=== PATIENT | female | born 1965 | race Caucasian/White ===

== ENCOUNTER 2024-10-02 16:33 | Emergency (ER) | payer MEDICAID, SELFPAY ==
[2024-10-02] VITALS (7 sets, daily range): BP systolic 155–218; BP diastolic 81–133; PULSE 53–70; RESP 15–20; TEMP 36.6–36.9; O2SAT 97–99; BMI 22.8
--- NOTE | 2024-10-02 17:08 | XR_ITS ---
Examination: AP chest single view Technique one AP portable semiupright chest single view Exam date and time: October 02, 2024 1739 hrs. Comparison January 25, 2015 Indications: High blood pressure today. Findings: Moderate enlargement left ventricle Mild vascular congestion Suspicious for septal edema at the lung bases Prominent osteopenia Impression: Mild heart failure
--- NOTE | 2024-10-02 17:08 | XR_ITS ---
Examination: CT brain head without contrast. 2-D sagittal coronal reconstructions Date and time of exam:October 02, 2024 1802 hrs. Indications: Onset headaches today CTDI: vol (mGy):46.4 DLP: (mGycm):953 Technique: Multiple CT axial sections of the brain have been obtained, 5 mm slice thickness. Contrast has not been administered. 2-D sagittal, coronal reconstructions have been obtained Low dose protocols were performed. One or more of the following dose reduction techniques were used; automated exposure control, adjustment of the mA and/or KV according to patient size, use of iterative reconstruction technique. Findings: No significant ventricular enlargement. Multiple bilateral basal ganglia infarcts Intra-axial or extra-axial hemorrhage density is not seen. No mass effect or midline shift Basal cisterns are not remarkable. Fourth ventricle is midline. Cranial vault intact. Impression: Negative for acute hemorrhage, mass effect or midline shift Bilateral old appearing basal ganglia infarcts, clinical correlation advised Brain MRI follow-up would best assess for acute infarcts
--- NOTE | 2024-10-02 17:12 | PD.EDHA ---
ED Headache RME/HPI General Chief Complaint: Headache Stated Complaint: HEADACHE Time Seen by Provider: 10/02/24 16:36 Arrival date/time: 10/02/24 16:33 RME / HPI RME / HPI Narrative: 59-year-old female patient with significant history of hypertension however not taking any medication due to homelessness, no resources, came in for evaluation regarding headache. According to the patient has been having headaches since yesterday morning, associated with heaviness on both side of the body. Patient told me that he had difficulty ambulating due to heaviness. Patient denies any blurry vision. Denies any fever denies any chest pain denies any other complaints. Patient is not taking her losartan due to being homeless. Was brought in by EMS. Related Data Previous Rx's ?Medication ?Instructions ?Recorded Sulfamethoxazole/Trimethoprim DS * 1 tab PO BID #20 tabs 09/30/16 (BACTRIM DS *) ibuprofen 600 mg tablet 600 mg PO Q6HR PRN PAIN #40 tabs 09/30/16 losartan 25 mg tablet 25 mg PO QDAY #30 tabs 04/11/21 losartan 25 mg tablet 25 mg PO QDAY #30 tabs 02/07/24 ibuprofen 800 mg tablet 800 mg PO Q8H PRN pain #30 tabs 10/02/24 losartan 25 mg tablet 25 mg PO BID #60 tabs 10/02/24 Allergies Allergy/AdvReac Type Severity Reaction Status Date / Time NKA* Allergy Uncoded 04/11/21 10:16 Review of Systems Review of Systems Narrative Review of Systems: Review of system reviewed and within normal limits except mentioned in HPI ED Exam Narrative Physical exam: VITAL SIGNS: Reviewed. GENERAL APPEARANCE: Alert and interactive, follows commands, no acute distress, GCS of 15 HEAD AND FACE: Non-traumatic. ENT: PERRL, pink conjunctivitis, eyelid no trauma, Mucous membrane moist. NECK: Supple, nontender, no nuchal rigidity. CHEST: No tenderness, no crepitus, no paradoxical movement, no retractions. LUNGS: Clear, well ventilated, symmetric, no rales, no wheezing, no ronchi, no stridor, good breath sounds bilaterally. HEART: Regular rate, regular rhythm, no murmur, no gallops. ABDOMEN: Soft, positive bowel sounds, nondistended, no guarding, nontender, no rebound, no masses, RECTAL: Deferred. GENITAL: Deferred. NEUROLOGICAL: Gross motor function intact sensory function intact, Appropriate for age. MUSCULOSKELETAL: low back nontender, full range of motion. EXTREMITIES: Nontender, full range of motion. SKIN: Color pink, dry, no rash, no lacerations, no abrasions, no contusions. LYMPHATICS: Deferred. Course Quality Measures none Orders Category Date Time Status Bedside COVID-19 Antigen Test NOW Care 10/02/24 17:10 Active Bedside Influenza A&B Antigen Test NOW Care 10/02/24 17:[address] head/brain wo con Stat Exams 10/02/24 17:08 Completed XR chest 1V Stat Exams 10/02/24 17:08 Taken B-Type Natriuretic Peptide Stat Lab 10/02/24 18:25 Completed CBC Stat Lab 10/02/24 18:25 Completed Comprehensive Metabolic Panel Stat Lab 10/02/24 18:25 Completed Drug Screen,Urine Stat Lab 10/02/24 17:08 Ordered Partial Thromboplastin Time Stat Lab 10/02/24 18:25 Completed Prothrombin Time with INR Stat Lab 10/02/24 18:25 Completed Troponin I Stat Lab 10/02/24 18:25 Completed Urinalysis, C/S if Indicated Stat Lab 10/02/24 17:08 Ordered Acetaminophen Tab [Tylenol ES Tab] Med 10/02/24 17:10 Discontinued 1,000 mg PO X1 ONE Labetalol IV [Trandate IV] Med 10/02/24 17:10 Discontinued 20 mg IVP X1 ONE Oseltamivir [Tamiflu] Med 10/02/24 19:14 Discontinued 75 mg PO X1 ONE cloNIDine HCL [Catapres] Med 10/02/24 19:15 Discontinued 0.2 mg PO X1 ONE Vital Signs Vital signs: Vital Signs Temperature 97.8 F 10/02/24 17:04 Pulse Rate 70 10/02/24 17:04 Respiratory Rate 20 10/02/24 17:04 Blood Pressure 201/120 H 10/02/24 17:04 Pulse Oximetry (%) 98 10/02/24 17:04 Oxygen Delivery Method Room Air 10/02/24 17:04 Headache MDM Narrative MDM Narrative:: 59-year-old female patient with significant history of hypertension however not taking any medication due to homelessness, no resources, came in for evaluation regarding headache. According to the patient has been having headaches since yesterday morning, associated with heaviness on both side of the body. Patient told me that he had difficulty ambulating due to heaviness. Patient denies any blurry vision. Denies any fever denies any chest pain denies any other complaints. Patient is not taking her losartan due to being homeless. Was brought in by EMS. CT scan of the head came back with Negative for acute hemorrhage, mass effect or midline shift Bilateral old appearing basal ganglia infarcts, clinical correlation advised Brain MRI follow-up would best assess for acute infarcts Patient tested positive for influenza A influenza B. The rest of the labs unremarkable. Patient was given Tylenol, clonidine, labetalol, and Tamiflu. Latest blood pressure was noted to be 155/81, Patient appears nontoxic and hemodynamically stable. Patient discharged home and instructed to follow-up with primary care provider in 24 to 48 hours. Instructed to return to the emergency department immediately if worsening of symptoms Patient data External records reviewed:: None Clinical information provided by:: patient Social determinants that could affect healthcare access:: none Patient has the following chronic illnesses:: Hypertension How is presenting disease/condition affected by chronic disease/condition?: exacerbated by Evaluation data The following diagnostics were reviewed and interpreted by me:: lab results and radiology exam(s) Lab and/or radiology exams considered but not ordered:: None Interpretation Summary: See results in MDM. Medications / Prescriptions Medications or Prescriptions considered but not ordered:: None Medication administrations:: Medication Administration History Discontinued Medications Acetaminophen (Acetaminophen 500 Mg Tablet) 1,000 mg PO X1 ONE Stop: 10/02/24 17:11 Last Admin: 10/02/24 17:57 Dose: 1,000 mg Documented By: SEEMA Clonidine (Clonidine Hcl 0.1 Mg Tablet) 0.2 mg PO X1 ONE Stop: 10/02/24 19:16 Last Admin: 10/02/24 19:27 Dose: 0.2 mg Documented By: SHORTY Labetalol HCl (Labetalol Inj 5 Mg/Ml Vial 20 Ml) 20 mg IVP X1 ONE Stop: 10/02/24 17:11 Last Admin: 10/02/24 18:26 Dose: 20 mg Documented By: SEEMA Oseltamivir Phosphate (Oseltamivir 75 Mg Capsule) 75 mg PO X1 ONE Stop: 10/02/24 19:15 Last Admin: 10/02/24 19:27 Dose: 75 mg Documented By: CB Tamiflu, labetalol clonidine and Tylenol Consultations Consultation(s) initiated? (list below): No Diagnosis Differential diagnosis headache: migraine, headache and other (Hypertension, influenza) Most likely diagnosis given after review of the tests above:: Hypertension, influenza, headache Admission Indicated Admission indicated?: not indicated Explain why admission is indicated or not indicated:: Stable Admission Request Was there a request for admission?: No Disposition Plan Disposition Plan: Discharge Discharge Attestation Discharge Attestation: The patient was given an opportunity to ask questions and understood the discharge instructions. Discharge instructions specifically effects, indications for sooner follow up or return to the emergency department, and the expected course of current diagnosis. Patient condition: Stable Discharge Plan Plan Patient Disposition: HOME (Self Care) Disposition Comment: Stable Prescriptions/Referrals Prescriptions/Med Rec: New losartan 25 mg tablet 25 mg PO BID Qty: 60 0RF ibuprofen 800 mg tablet 800 mg PO Q8H PRN (Reason: pain) Qty: 30 0RF No Action ibuprofen 600 MG tablet 600 mg PO Q6HR PRN (Reason: PAIN) Qty: 40 0RF Sulfamethoxazole/Trimethoprim DS * (BACTRIM DS *) 1 TAB tablet 1 tab PO BID Qty: 20 0RF losartan 25 mg tablet 25 mg PO QDAY Qty: 30 0RF losartan 25 mg tablet 25 mg PO QDAY Qty: 30 0RF Referrals: No Primary/Family,Physician [Primary Care Provider] - In 1 week Problem List Clinical Impression: Headache, Influenza, Hypertension Patient/Caregiver Discharge Instructions Discharge Activity: activity as tolerated Education Materials: ED Influenza (Adult) Additional Instructions: Thank you for the opportunity for serving you today. You are stable for discharged . You are advised to: Follow-up with your PCP in 1 to 2 days Return to ED for worsening of symptoms Increase oral fluids Take medication as prescribed Print Language: Albanian Stand Alone Forms: [place] Award Info., Patient Portal Info Letter TAE/KRYSTA Supervising Physician TAE/KRYSTA Supervising Physician: MD Bebe
[2024-10-02] MEDS: ACETAMINOPHEN 500 MG TABLET 1000 MG PO (17:57)
[2024-10-02] MEDS: LABETALOL INJ 5 MG/ML VIAL 20 ML 20 MG IVP (18:26)
[2024-10-02 18:44] LABS: Basophils # (Auto) 0.1 Thou/mm3 (0.0-0.2); Basophils % (Auto) 1 % (0-2.5); Eosinophils # (Auto) 0.2 Thou/mm3 (0.0-0.5); Eosinophils % (Auto) 2 % (0-10); Hematocrit 43.4 % (36.0-46.0); Hemoglobin 14.8 g/dL (12.0-16.0); Immature Granulocytes % (Auto) 0 % (0-0); Immature Granulocytes Auto 0.03 Thou/mm3 (0.00-0.00); Lymphocytes # (Auto) 2.3 Thou/mm3 (1.0-4.8); Lymphocytes % (Auto) 23 % (10-50); Mean Corpuscular HGB Conc 34.1 g/dl (31.0-37.0); Mean Corpuscular Hemoglobin 29.8 pg (25.0-35.0); Mean Corpuscular Volume 87 fL (80-100); Monocytes # (Auto) 1.2 Thou/mm3 (0.0-0.8); Monocytes % (Auto) 13 % (0-12); Neutrophils % (Auto) 62 % (37-80); Nucleated Red Blood Cell % 0 /100 WBC (0); Platelet Count 328 Thou/mm3 (140-440); RDW Standard Deviation 42.6 fL (36.4-46.3); Red Blood Count 4.97 Miln/mm3 (4.00-5.20); White Blood Count 9.7 Thou/mm3 (3.6-11.0)
[2024-10-02 19:00] LABS: Partial Thromboplastin Time 27.1 Seconds (22.0-36.0); Prothrombin Time 11.2 Seconds (9.0-12.2)
[2024-10-02 19:04] LABS: B-Type Natriuretic Peptide 106 pg/mL (0-100)
[2024-10-02 19:05] LABS: Alanine Aminotransferase 18 U/L (10-49); Albumin, Serum 4.3 gm/dL (3.4-4.8); Albumin/Globulin Ratio 1.4 (1.2-2.2); Alkaline Phosphatase 118 U/L (46-116); Anion Gap 8 (7-16); Aspartate Amino Transferase 21 U/L (0-34); BUN/Creatinine Ratio 17 Ratio (12-20); Bilirubin,Total 0.7 mg/dL (0.3-1.2); Blood Urea Nitrogen 19 mg/dL (9-23); Calcium 10.2 mg/dL (8.3-10.6); Calcium (Corrected) 10.2 mg/dL (8.5-10.1); Carbon Dioxide 31.9 mMol/L (20.0-31.0); Chloride 103 mMol/L (98-107); Creatinine (Component) 1.1 mg/dL (0.6-1.3); Glucose 124 mg/dL (74-106); Osmolality,Calculated 288 (275-295); Sodium 143 mMol/L (136-145); Total Protein 7.3 gm/dL (5.7-8.2); Troponin I < 0.020 ng/mL (0.0-0.045); eGFR 58 See Note
[2024-10-02] MEDS: cloNIDine HCL 0.1 MG TABLET 0.2 MG PO (19:27)
[2024-10-02] MEDS: OSELTAMIVIR 75 MG CAPSULE PO (19:27)
== END 2024-10-02 21:31 | disposition home or self-care (01) ==
PROVIDERS: Nurse Practitioner Family; Emergency Provider Emergency Medicine
DX: I10 Essential (primary) hypertension (principal); J10.1 Influenza due to other identified influenza virus with other respiratory manifestations; T46.5X6A Underdosing of other antihypertensive drugs, initial encounter; Z91.141 Patient's other noncompliance with medication regimen due to financial hardship; Z59.00 Homelessness unspecified; Z79.899 Other long term (current) drug therapy
CPT/HCPCS: 36415; 70450; 71045; 80053; 80307; 81001; 83880; 84484; 85025; 85610; 85730; 87400; 87811; 99284; J3490; A9270; J1920

== ENCOUNTER 2024-11-18 14:17 | Emergency (ER) | payer MEDICAID, SELFPAY ==
[2024-11-18 14:18] VITALS: BMI 24.4
[2024-11-18 14:46] VITALS: BP 194/125; PULSE 87; RESP 18; TEMP 36.6; O2SAT 99
--- NOTE | 2024-11-18 14:52 | XR_ITS ---
Examination: CT abdomen with intravenous contrast CT pelvis with intravenous contrast 2-D coronal reconstructions 2-D sagittal reconstructions Date and time of exam:November 18, 20242021 hrs. Indications: Loss of bowel function today. CTDI: vol (mGy) 6.97 DLP: (mGycm) 299 Technique: Multiple axial sections of the abdomen and pelvis have been obtained. 64 slice high-resolution scanner used. 3 mm axial sections have been obtained, post intravenous injection 60 cc [id number] 2-D sagittal, coronal reconstructions obtained. Low dose protocols were performed. One or more of the following dose reduction techniques were used; automated exposure control, adjustment of the mA and/or KV according to patient size, use of iterative reconstruction technique. Findings: No focal liver or splenic lesions No gallstones No pancreatic or adrenal mass No renal or ureteral calculi, no hydronephrosis No bowel obstruction No pericecal inflammatory change Severe lumbar levoscoliosis Advanced narrowing hip joints Advanced degenerative disc disease L3-L4, L4-L5 Atrophic uterus Diffuse hyperemia involving the colon especially rectosigmoid extending to the rectum Impression: Significant diffuse nonspecific colitis and proctitis pattern Recommend elective colonoscopy follow-up
--- NOTE | 2024-11-18 14:55 | PD.EDRME ---
Rapid Medical Screening Exam [facility] Arrival date/time: 11/18/24 14:17 59-year-old female with a history of hypertension presents to the emergency room with a chief complaint of loss of bowel function. Patient states she recently had a stroke 2 weeks ago that left her slurred speech and bilateral weakness to her lower extremities. Patient states the symptoms are still present but today she began having loss of bowel function I have greeted and performed a focused initial assessment of this patient. A comprehensive ED assessment and evaluation of the patient, analysis of all test results, and completion of the medical decision making process will be conducted by additional ED providers. Chief Complaint: Abdominal Pain Time Seen by Provider: 11/18/24 14:38 Vital signs: Vital Signs Temperature 98 F 11/18/24 14:46 Pulse Rate 87 11/18/24 14:46 Respiratory Rate 18 11/18/24 14:46 Blood Pressure 194/125 H 11/18/24 14:46 Pulse Oximetry (%) 99 11/18/24 14:46 Oxygen Delivery Method Room Air 11/18/24 14:46 Vital signs reviewed by provider: Yes
[2024-11-18 15:37] LABS: Basophils # (Auto) 0.1 Thou/mm3 (0.0-0.2); Basophils % (Auto) 1 % (0-2.5); Eosinophils # (Auto) 0.2 Thou/mm3 (0.0-0.5); Eosinophils % (Auto) 3 % (0-10); Hematocrit 42.6 % (36.0-46.0); Hemoglobin 13.9 g/dL (12.0-16.0); Immature Granulocytes % (Auto) 1 % (0-0); Immature Granulocytes Auto 0.04 Thou/mm3 (0.00-0.00); Lymphocytes # (Auto) 1.8 Thou/mm3 (1.0-4.8); Lymphocytes % (Auto) 24 % (10-50); Mean Corpuscular HGB Conc 32.6 g/dl (31.0-37.0); Mean Corpuscular Hemoglobin 29.8 pg (25.0-35.0); Mean Corpuscular Volume 91 fL (80-100); Monocytes # (Auto) 0.7 Thou/mm3 (0.0-0.8); Monocytes % (Auto) 9 % (0-12); Neutrophils # (Auto) 4.9 Thou/mm3 (1.8-7.7); Neutrophils % (Auto) 64 % (37-80); Nucleated Red Blood Cell % 0 /100 WBC (0); Platelet Count 269 Thou/mm3 (140-440); RDW Standard Deviation 47.5 fL (36.4-46.3); Red Blood Count 4.67 Miln/mm3 (4.00-5.20); White Blood Count 7.7 Thou/mm3 (3.6-11.0)
[2024-11-18 15:56] LABS: Collection Type, Urine Clean Catch
[2024-11-18 16:01] LABS: Alanine Aminotransferase 13 U/L (10-49); Albumin, Serum 4.5 gm/dL (3.4-4.8); Albumin/Globulin Ratio 1.3 (1.2-2.2); Alkaline Phosphatase 111 U/L (46-116); Anion Gap 7 (7-16); Aspartate Amino Transferase 23 U/L (0-34); BUN/Creatinine Ratio 12 Ratio (12-20); Bilirubin,Total 0.8 mg/dL (0.3-1.2); Blood Urea Nitrogen 16 mg/dL (9-23); Calcium 9.9 mg/dL (8.3-10.6); Calcium (Corrected) 9.9 mg/dL (8.5-10.1); Carbon Dioxide 29.6 mMol/L (20.0-31.0); Chloride 105 mMol/L (98-107); Creatinine (Component) 1.3 mg/dL (0.6-1.3); Estimated Creatinine Clearance 36.3 mL/min (>60); Globulin 3.4 gm/dL (2.3-3.5); Glucose 94 mg/dL (74-106); Lipase 26 U/L (12-53); Osmolality,Calculated 284 (275-295); Potassium 4.3 mMol/L (3.4-5.1); Sodium 142 mMol/L (136-145); Total Protein 7.9 gm/dL (5.7-8.2); eGFR 47 See Note
[2024-11-18 16:04] LABS: Bacteria,Urine 2+; Bilirubin,Urine Negative (Negative); Blood,Urine Negative (Negative); Calcium Oxalate Crystals,Urine 2+; Color,Urine Yellow (Lt Yel-Yel); Glucose, Urine Negative (Negative); Hyaline Casts,Urine 1 /hpf (0-1); Ketones,Urine Negative (Negative); Leukocyte Esterase,Urine Positive (Negative); Nitrite,Urine Negative (Negative); PH,Urine 5.5 (5.0-7.0); Protein,Urine 1+ (Neg - Trace); RBC,Urine 35 /hpf (0-3); Specific Gravity,Urine 1.025 (1.001-1.035); Squamous Epithelial Cell,Urine 6 /hpf (0-5); WBC,Urine 108 /hpf (0-5)
[2024-11-18 17:01] LABS: Clarity,Urine Hazy (Clear/Hazy)
[2024-11-18 19:25] VITALS: BP 199/120; PULSE 63; RESP 17; TEMP 36.5; O2SAT 99
--- NOTE | 2024-11-18 22:57 | PD.EDADULT ---
ED General RME/HPI General Chief complaint: Abdominal Pain Stated complaint: UNABLE TO CONTROL BM, BOUTS OF DIARRHEA Time Seen by Provider: 11/18/24 14:38 Arrival date/time: 11/18/24 14:17 RME / HPI RME / HPI narrative: 59-year-old female with a history of hypertension presents to the emergency room with a chief complaint of loss of bowel function. Patient states she recently had a stroke 2 weeks ago that left her slurred speech and bilateral weakness to her lower extremities. Patient states the symptoms are still present but today she began having loss of bowel function. She also complained of diarrhea. Patient is ambulatory unaided. She denies any saddle anesthesia. She denies any bladder incontinence. Denies any dysuria. She denies any other complaints. She is homeless Related Data Previous Rx's ?Medication ?Instructions ?Recorded Sulfamethoxazole/Trimethoprim DS * 1 tab PO BID #20 tabs 09/30/16 (BACTRIM DS *) ibuprofen 600 mg tablet 600 mg PO Q6HR PRN PAIN #40 tabs 09/30/16 losartan 25 mg tablet 25 mg PO QDAY #30 tabs 04/11/21 losartan 25 mg tablet 25 mg PO QDAY #30 tabs 02/07/24 ibuprofen 800 mg tablet 800 mg PO Q8H PRN pain #30 tabs 10/02/24 losartan 25 mg tablet 25 mg PO BID #60 tabs 10/02/24 ciprofloxacin HCl 500 mg tablet 500 mg PO BID #14 tabs 11/18/24 (Cipro) ibuprofen 600 mg tablet 600 mg PO TID PRN pain #30 tabs 11/18/24 Allergies Allergy/AdvReac Type Severity Reaction Status Date / Time NKA* Allergy Uncoded 11/18/24 14:19 Review of Systems Review of Systems Narrative Review of Systems: Review of system reviewed and within normal limits except mentioned in HPI ED Exam Narrative Physical exam: VITAL SIGNS: Reviewed. GENERAL APPEARANCE: Alert and interactive, follows commands, no acute distress, HEAD AND FACE: Non-traumatic. ENT: PERRL, pink conjunctivitis, eyelid no trauma, Mucous membrane moist. NECK: Supple, nontender, no nuchal rigidity. CHEST: No tenderness, no crepitus, no paradoxical movement, no retractions. LUNGS: Clear, well ventilated, symmetric, no rales, no wheezing, no ronchi, no stridor, good breath sounds bilaterally. HEART: Regular rate, regular rhythm, no murmur, no gallops. ABDOMEN: Soft, positive bowel sounds, nondistended, no guarding, nontender, no rebound, no masses, RECTAL: Deferred. GENITAL: Deferred. NEUROLOGICAL: Gross motor function intact sensory function intact, Appropriate for age. MUSCULOSKELETAL: low back nontender, full range of motion. EXTREMITIES: Nontender, full range of motion. SKIN: Color pink, dry, no rash, no lacerations, no abrasions, no contusions. LYMPHATICS: Deferred. Course Quality Measures none Orders Category Date Time Status CT Screening NOW Care 11/18/24 14:[address] abdomen pelvis w con Stat Exams 11/18/24 14:52 Completed CBC Stat Lab 11/18/24 15:20 Completed CMP [Comprehensive Metabolic Panel] Stat Lab 11/18/24 15:20 Completed Lipase Stat Lab 11/18/24 15:20 Completed UA [Urinalysis] Stat Lab 11/18/24 15:24 Completed Urine Culture Stat Lab 11/18/24 15:24 Received Acetaminophen Tab [Tylenol ES Tab] Med 11/18/24 22:56 Once 1,000 mg PO X1 ONE Ciprofloxacin HCl [Ciprofloxacin] Med 11/18/24 22:56 Once 500 mg PO X1 ONE Vital Signs Vital signs: Vital Signs Temperature 98 F 11/18/24 14:46 Pulse Rate 87 11/18/24 14:46 Respiratory Rate 18 11/18/24 14:46 Blood Pressure 194/125 H 11/18/24 14:46 Pulse Oximetry (%) 99 11/18/24 14:46 Oxygen Delivery Method Room Air 11/18/24 14:46 Discharge Plan Plan Patient Disposition: HOME (Self Care) Disposition Comment: stable Prescriptions/Referrals Prescriptions/Med Rec: New ciprofloxacin HCl [Cipro] 500 mg tablet 500 mg PO BID Qty: 14 0RF ibuprofen 600 mg tablet 600 mg PO TID PRN (Reason: pain) Qty: 30 0RF No Action ibuprofen 600 MG tablet 600 mg PO Q6HR PRN (Reason: PAIN) Qty: 40 0RF Sulfamethoxazole/Trimethoprim DS * (BACTRIM DS *) 1 TAB tablet 1 tab PO BID Qty: 20 0RF losartan 25 mg tablet 25 mg PO QDAY Qty: 30 0RF losartan 25 mg tablet 25 mg PO BID Qty: 60 0RF ibuprofen 800 mg tablet 800 mg PO Q8H PRN (Reason: pain) Qty: 30 0RF losartan 25 mg tablet 25 mg PO QDAY Qty: 30 0RF Referrals: No Primary/Family,Physician [Primary Care Provider] - In 1 week Problem List Clinical Impression: UTI (urinary tract infection), Diarrhea Patient/Caregiver Discharge Instructions Discharge Activity: activity as tolerated Education Materials: Understanding Urinary Tract ... Additional Instructions: Thank you for the opportunity for serving you today. You are stable for discharged . You are advised to: Follow-up with your PCP in 1 to 2 days Return to ED for worsening of symptoms Increase oral fluids Take medication as prescribed Print Language: Chilean Stand Alone Forms: [place] Award Info., Patient Portal Info Letter TAE/KRYSTA Supervising Physician TAE/KRYSTA Supervising Physician: MD Yasir [facility] Patient Acuity Narrative: 59-year-old female with a history of hypertension presents to the emergency room with a chief complaint of loss of bowel function. Patient states she recently had a stroke 2 weeks ago that left her slurred speech and bilateral weakness to her lower extremities. Patient states the symptoms are still present but today she began having loss of bowel function. She also complained of diarrhea. Patient is ambulatory unaided. She denies any saddle anesthesia. She denies any bladder incontinence. Denies any dysuria. She denies any other complaints. She is homeless Patient's workup is significant for UTI. CT scan of the abdomen pelvis showed Significant diffuse nonspecific colitis and proctitis pattern Recommend elective colonoscopy follow-up. Patient received Cipro in the emergency room. Patient was advised to closely follow-up with PCP in 1 to 2 days. Clinical Information Provided by: none Medication Administration(s) Medication Administration History Discontinued Medications Acetaminophen (Acetaminophen 500 Mg Tablet) 1,000 mg PO X1 ONE Stop: 11/18/24 22:57 Ciprofloxacin (Ciprofloxacin Hcl 250 Mg Tablet) 500 mg PO X1 ONE Stop: 11/18/24 22:57 Diagnosis Differential Diagnosis ED Complaint MDM: UTI, diarrhea, bowel incontinent
[2024-11-18] MEDS: ACETAMINOPHEN 500 MG TABLET 1000 MG PO (23:12)
[2024-11-18] MEDS: CIPROFLOXACIN HCL 250 MG TABLET 500 MG PO (23:12)
[2024-11-18 23:21] VITALS: BP 180/101; PULSE 78; RESP 18; TEMP 36.6; O2SAT 99
== END 2024-11-18 23:22 | disposition home or self-care (01) ==
PROVIDERS: Nurse Practitioner Family; Emergency Provider Emergency Medicine
DX: N39.0 Urinary tract infection, site not specified (principal); R19.7 Diarrhea, unspecified; I10 Essential (primary) hypertension; Z86.73 Personal history of transient ischemic attack (TIA), and cerebral infarction without residual deficits
CPT/HCPCS: 36415; 74177; 80053; 81001; 83690; 85025; 87086; 99285; A4649; Q9967; A9270

== ENCOUNTER 2024-12-23 11:07 | Emergency (ER) | payer MEDICAID, SELFPAY ==
[2024-12-23 11:17] VITALS: BMI 19.3
[2024-12-23 11:18] VITALS: BP 189/105; BP 213/95; PULSE 60; RESP 18; TEMP 36.6; O2SAT 95
--- NOTE | 2024-12-23 11:21 | EDNOTE_ITS ---
<Statement entered by Eula Hills MD - 12/24/24 06:32> As co-signing physician, I was present and available for consult prn. I concur with the plan and care as documented by the midlevel provider. ED Medical Clearance RME/HPI General Chief complaint: Medical Clearance Stated complaint: CLEARANCE Time Seen by Provider: 12/23/24 11:20 Arrival date/time: 12/23/24 11:07 RME / HPI RME / HPI Narrative: 59-year-old female patient with significant history of hypertension, currently not taking any blood pressure medication, came in for evaluation regarding medical clearance due to elevated blood pressure. In the residential patient was noted to have a blood pressure above 200. Patient is currently not having any headache chest pain neck pain or other complaints. Patient told me that he is not taking her losartan due to being homeless. Related Information Previous Rx's ?Medication ?Instructions ?Recorded Sulfamethoxazole/Trimethoprim DS * 1 tab PO BID #20 ta bs 09/30/16 (BACTRIM DS *) ibuprofen 600 mg tablet 600 mg PO Q6HR PRN PAIN #40 tabs 09/30/16 losartan 25 mg tablet 25 mg PO QDAY #30 tabs 04/11 losartan 25 mg tablet 25 mg PO QDAY #30 tabs 02/06 ibuprofen 800 mg tablet 800 mg PO Q8H PRN pain #30 t abs 10/02/24 losartan 25 mg tablet 25 mg PO BID #60 tabs ciprofloxacin HCl 500 mg tablet 500 mg PO BID #14 tabs 11/18/24 (Cipro) ibuprofen 600 mg tablet 600 mg PO TID PRN pain #30 t abs 11/18/24 losartan 25 mg tablet 25 mg PO QDAY #30 tabs 12/23 Allergies Allergy/AdvReac Type Severity Reaction Status Date / Time NKA* Allergy Uncoded 11/18/24 14:19 Review of Systems Review of Systems Narrative Review of Systems: Review of system reviewed and within normal limits except mentioned in HPI ED Exam Narrative Physical exam: VITAL SIGNS: Reviewed. GENERAL APPEARANCE: Alert and interactive, follows commands, no acute distress, HEAD AND FACE: Non-traumatic. ENT: PERRL, pink conjunctivitis, eyelid no trauma, Mucous membrane moist. NECK: Supple, nontender, no nuchal rigidity. CHEST: No tenderness, no crepitus, no paradoxical movement, no retractions. LUNGS: Clear, well ventilated, symmetric, no rales, no wheezing, no ronchi, no stridor, good breath sounds bilaterally. HEART: Regular rate, regular rhythm, no murmur, no gallops. ABDOMEN: Soft, positive bowel sounds, nondistended, no guarding, nontender, no rebound, no masses, RECTAL: Deferred. GENITAL: Deferred. NEUROLOGICAL: Gross motor function intact sensory function intact, Appropriate for age. MUSCULOSKELETAL: low back nontender, full range of motion. EXTREMITIES: Nontender, full range of motion. SKIN: Color pink, dry, no rash, no lacerations, no abrasions, no contusions. LYMPHATICS: Deferred. Course Quality Measures none Orders Category Date Time Status Acetaminophen Tab [Tylenol ES Tab] Med 12/23/24 11:24 Discontinued 1,000 mg PO X1 ONE NIFEdipine [Procardia] Med 12/23/24 11:24 Discontinued 20 mg PO X1 ONE Vital Signs Vital signs: Vital Signs Temperature 97.8 F 12/23/24 11:18 Pulse Rate 60 12/23/24 11:18 Respiratory Rate 18 12/23/24 11:18 Blood Pressure 189/105 H 12/23/24 11:18 Pulse Oximetry (%) 95 12/23/24 11:18 Oxygen Delivery Method Room Air 12/23/24 11:18 Medical Clearance MDM Narrative MDM Narrative:: 59-year-old female patient with significant history of hypertension, currently not taking any blood pressure medication, came in for evaluation regarding medical clearance due to elevated blood pressure. In the residential patient was noted to have a blood pressure above 200. Patient is currently not having any headache chest pain neck pain or other complaints. Patient told me that he is not taking her losartan due to being homeless. Patient was given Procardia, blood pressure was noted to be 130/86 prior to discharge. Patient is 57 cleared for incarceration Patient data External records reviewed:: None Clinical information provided by:: patient and law enforcement Social determinants that could affect healthcare access:: none Patient has the following chronic illnesses:: Hypertension How is presenting disease/condition affected by chronic disease/condition?: uneffected by Evaluation data The following diagnostics were reviewed and interpreted by me:: other (specify) (None) Lab and/or radiology exams considered but not ordered:: None Interpretation Summary: None Medications / Prescriptions Medications or Prescriptions considered but not ordered:: Tylenol none Medication administrations:: Medication Administration History Discontinued Medications Acetaminophen (Acetaminophen 500 Mg Tablet) 1,000 mg PO X1 ONE Stop: 12/23/24 11:25 Last Admin: 12/23/24 11:42 Dose: 1,000 mg Documented By: ANTHONY Nifedipine (Nifedipine 10 Mg Capsule) 20 mg PO X1 ONE Stop: 12/23/24 11:25 Last Admin: 12/23/24 11:40 Dose: 20 mg Documented By: ANTHONY Tylenol Procardia Consultations Consultation(s) initiated? (list below): No Diagnosis Medical Clearance Differential Diagnosis: other (Medical clearance for incarceration, hypertension not on medications) Most likely diagnosis given after review of the tests above:: Medical clearance for incarceration, hypertension not on medications Admission Indicated Admission indicated?: not indicated Admission Request Was there a request for admission?: No Disposition Plan Disposition Plan: Discharge Discharge Attestation Discharge Attestation: Patient condition: Stable Discharge Plan Plan Patient Disposition: Snf/Court/Law Discharge Disposition comment: Stable Prescriptions/Referrals Prescriptions/Med Rec: New losartan 25 mg tablet 25 mg PO QDAY Qty: 30 0RF No Action ibuprofen 600 MG tablet 600 mg PO Q6HR PRN (Reason: PAIN) Qty: 40 0RF Sulfamethoxazole/Trimethoprim DS * (BACTRIM DS *) 1 TAB tablet 1 tab PO BID Qty: 20 0RF losartan 25 mg tablet 25 mg PO QDAY Qty: 30 0RF losartan 25 mg tablet 25 mg PO BID Qty: 60 0RF ibuprofen 800 mg tablet 800 mg PO Q8H PRN (Reason: pain) Qty: 30 0RF losartan 25 mg tablet 25 mg PO QDAY Qty: 30 0RF ciprofloxacin HCl [Cipro] 500 mg tablet 500 mg PO BID Qty: 14 0RF ibuprofen 600 mg tablet 600 mg PO TID PRN (Reason: pain) Qty: 30 0RF Referrals: No Primary/Family,Physician [Primary Care Provider] - In 1 week Problem List Clinical Impression: Medical clearance for incarceration, Hypertension Patient/Caregiver Discharge Instructions Discharge Activity: activity as tolerated Education Materials: Hypertension Dc Additional Instructions: Thank you for the opportunity for serving you today. You are stable for discharged . You are advised to: Follow-up with your PCP in 1 to 2 days once you get out of residential I sent a prescription to your pharmacy regarding her blood pressure medication Print Language: Indonesian TAE/KRYSTA Supervising Physician TAE/KRYSTA Supervising Physician: MD Reinier
[2024-12-23 11:40] VITALS: BP 216/134; PULSE 62
[2024-12-23] MEDS: NIFEdipine 10 MG CAPSULE 20 MG PO (11:40)
[2024-12-23] MEDS: ACETAMINOPHEN 500 MG TABLET 1000 MG PO (11:42)
[2024-12-23 12:00] VITALS: BP 130/86; PULSE 77; RESP 18; O2SAT 100
== END 2024-12-23 12:53 ==
PROVIDERS: Emergency Provider Emergency Medicine
DX: Z02.89 Encounter for other administrative examinations (principal); I10 Essential (primary) hypertension; Z59.00 Homelessness unspecified
CPT/HCPCS: 99282; A9270

== ENCOUNTER 2024-12-31 12:55 | Emergency (ER) | payer MEDICAID, SELFPAY ==
[2024-12-31 12:56] VITALS: PULSE 78; RESP 18; O2SAT 99; BMI 22.8
[2024-12-31 12:58] VITALS: BP 183/95; PULSE 67; RESP 18; TEMP 36.4; O2SAT 96
--- NOTE | 2024-12-31 13:16 | XR_ITS ---
Examination:Left hip AP, lateral, AP pelvis 3 views Technique: Hip AP lateral, AP pelvis, 3 views Exam date and time:December 31, 2024 1326 hours INDICATIONS: Patient fell today with injury to left hip, left hip pain. FINDINGS: No definite fracture or hip dislocation Right hip bones of the pelvis intact IMPRESSION: No acute hip or pelvic fracture If pain persists, recommend 1-2 day follow-up plain film of the pelvis.
--- NOTE | 2024-12-31 13:16 | XR_ITS ---
Examination: Knee, right , 3 views Technique: Knee AP, lateral, oblique 3 views Date and time of exam: December 31, 2024 1326 hours INDICATIONS: Patient fell today with injury to the knee, knee pain FINDINGS: No fracture or dislocation Mild narrowing medial joint space IMPRESSION: No fracture or dislocation
--- NOTE | 2024-12-31 13:17 | EDNOTE_ITS ---
ED Fall Injury RME/HPI General Chief Complaint: Fall Stated Complaint: FALL Time Seen by Provider: 12/31/24 13:04 Source: patient Arrival date/time: 12/31/24 12:55 59-year-old female with a history of hypertension, presents to the emergency room with a chief complaint of left-sided hip pain and right-sided knee pain after a ground-level fall that occurred today. Mode of arrival: ambulatory Limitations: no limitations Related Data Previous Rx's ?Medication ?Instructions ?Recorded Sulfamethoxazole/Trimethoprim DS * 1 tab PO BID #20 ta bs 09/30/16 (BACTRIM DS *) ibuprofen 600 mg tablet 600 mg PO Q6HR PRN PAIN #40 tabs 09/30/16 losartan 25 mg tablet 25 mg PO QDAY #30 tabs 04/11 losartan 25 mg tablet 25 mg PO QDAY #30 tabs 02/06 ibuprofen 800 mg tablet 800 mg PO Q8H PRN pain #30 t abs 10/02/24 losartan 25 mg tablet 25 mg PO BID #60 tabs ciprofloxacin HCl 500 mg tablet 500 mg PO BID #14 tabs 11/18/24 (Cipro) ibuprofen 600 mg tablet 600 mg PO TID PRN pain #30 t abs 11/18/24 losartan 25 mg tablet 25 mg PO QDAY #30 tabs 12/23 Allergies Allergy/AdvReac Type Severity Reaction Status Date / Time NKA* Allergy Uncoded 11/18/24 14:19 Review of Systems Review of Systems Systems Reviewed: All systems reviewed, normal except as documented Constitutional Constitutional: Reports system reviewed and no additional complaints, except as documented, Denies fatigue, Denies fever(s), Denies headache(s) and Denies weakness Eyes Eyes: Reports system reviewed and no additional complaints, except as documente d, Denies blurry vision and Denies change in vision ENT Ears, Nose, Mouth, and Throat: Reports system reviewed and no additional complaints, except as documented, Denies otalgia, Denies headache(s), Denies nasal congestion, Denies throat swelling and Denies vertigo Cardiovascular Cardiovascular: Reports system reviewed and no additional complaints, except as documented, Denies chest pain, Denies dyspnea and Denies dyspnea on exertion Respiratory Respiratory: Reports system reviewed and no additional complaints, except as documented, Denies chest congestion, Denies cough, Denies dyspnea, Denies dyspnea on exertion and Denies wheezing Gastrointestinal Gastrointestinal: Reports system reviewed and no additional complaints, except as documented, Denies abdominal pain, Denies cramping, Denies nausea and Denies vomiting Genitourinary Genitourinary: Reports system reviewed and no additional complaints, except as documented Musculoskeletal Musculoskeletal: Reports system reviewed and no additional complaints, except as documented, Reports arthralgias, Denies back pain, Reports joint swelling and R eports limited range of motion Integumentary/Breasts Skin/Breast: Reports system reviewed and no additional complaints, except as documented and Denies wounds Neurologic Neurologic: Reports system reviewed and no additional complaints, except as documented, Denies confusion, Denies headache(s), Denies lack of coordination, Denies vertigo and Denies weakness Psychiatric Psychiatric: Reports system reviewed and no additional complaints, except as documented, Denies anxiety, Denies confusion, Denies depression, Denies paranoia, Denies suicidal ideation and Denies tactile hallucinations Endocrine Endocrine: Reports system reviewed and no additional complaints, except as documented and Denies fatigue Hematologic/Lymphatic Hematologic/Lymphatic: Reports system reviewed and no additional complaints, except as documented and Denies lymphadenopathy Allergic/Immunologic Allergic/Immunologic: Reports system reviewed and no additional complaints, except as documented, Denies throat swelling, Denies urticaria and Denies wheezing ED Exam General Limitations: Present no limitations General appearance: Present alert and in no apparent distress Head Head exam: Present atraumatic Eye Eye exam: Present normal appearance, PERRL and EOMI ENT ENT exam: Present normal exam, normal oropharynx and mucous membranes moist Neck Neck exam: Present normal inspection, full ROM and trachea midline Chest Chest inspection: Present normal inspection and symmetric chest wall rise Respiratory Respiratory exam: Present normal lung sounds bilaterally Cardiovascular Cardiovascular exam: Present regular rate, normal rhythm and normal heart sounds Abdominal Exam Abdominal exam: Present soft and normal bowel sounds Extremities Exam Extremities exam: Present normal inspection and full ROM Expanded Lower Extremity Exam Hip/Pelvis exam: Present tenderness and swelling; Absent full ROM Knee exam: Present tenderness and swelling Back Exam Back exam: Present normal inspection and full ROM Neurological Exam Neurological exam: Present alert, oriented X3 and CN II-XII intact Psychiatric Psychiatric exam: Present normal affect and normal mood Skin Skin exam: Present warm, dry, intact and normal color Course Quality Measures none Orders Category Date Time Status XR hip LT w pelvis min 4V Stat Exams 12/31/24 13:16 Completed XR knee RT 3V Stat Exams 12/31/24 13:16 Completed Vital Signs Vital signs: Vital Signs Temperature 97.5 F 12/31/24 12:58 Pulse Rate 67 12/31/24 12:58 Respiratory Rate 18 12/31/24 12:58 Blood Pressure 183/95 H 12/31/24 12:58 Pulse Oximetry (%) 96 12/31/24 12:58 Oxygen Delivery Method Room Air 12/31/24 12:58 O2 saturation 96% within normal limits Fall MDM Narrative MDM Narrative:: 59-year-old female with a history of hypertension, presents to the emergency room with a chief complaint of left-sided hip pain and right-sided knee pain after a ground-level fall that occurred today. Patient is hemodynamically stable and in no apparent distress Patient is having tenderness to the patient's left hip as well as the right knee after a fall that occurred today. The patient is able to ambulate X-ray of the left hip was completed and was negative for any acute fracture or dislocation. X-ray of the right knee was completed and was negative for any acute fracture or dislocation Patient was discharged and educated to follow-up with primary care provider in the next 24 to 48 hours and return to the emergency room for any evidence of worsening signs or symptoms Patient data External records reviewed:: [facility] previous records Clinical information provided by:: patient Social determinants that could affect healthcare access:: none Patient has the following chronic illnesses:: No chronic illness How is presenting disease/condition affected by chronic disease/condition?: no chronic disease Evaluation data The following diagnostics were reviewed and interpreted by me:: lab results and radiology exam(s) Lab and/or radiology exams considered but not ordered:: Labs and radiology exams considered and ordered Interpretation Summary: X-ray left hip-FINDINGS: No definite fracture or hip dislocation Right hip bones of the pelvis intact IMPRESSION: No acute hip or pelvic fracture If pain persists, recommend 1-2 day follow-up plain film of the pelvis. X-ray right knee-FINDINGS: No fracture or dislocation Mild narrowing medial joint space IMPRESSION: No fracture or dislocation Medications / Prescriptions Medications or Prescriptions considered but not ordered:: No medication given Medication administrations:: No medication given Consultations Consultation(s) initiated? (list below): No Diagnosis Fall Differential Diagnosis: other (Hip contusion/right knee pain/right knee fracture/right hip fracture) Most likely diagnosis given after review of the tests above:: Hip contusion Admission Indicated Admission indicated?: not indicated Admission Request Was there a request for admission?: No Disposition Plan Disposition Plan: Discharge Discharge Attestation Discharge Attestation: The patient and all family members were given an opportunity to ask questions and understood the discharge instructions. Discharge instructions specifically effects, indications for sooner follow up or return to the emergency department, and the expected course of current diagnosis. Patient condition: Stable Discharge Plan Plan Patient Disposition: HOME (Self Care) Discharge Disposition comment: Stable Prescriptions/Referrals Prescriptions/Med Rec: No Action ibuprofen 600 MG tablet 600 mg PO Q6HR PRN (Reason: PAIN) Qty: 40 0RF Sulfamethoxazole/Trimethoprim DS * (BACTRIM DS *) 1 TAB tablet 1 tab PO BID Qty: 20 0RF losartan 25 mg tablet 25 mg PO QDAY Qty: 30 0RF losartan 25 mg tablet 25 mg PO BID Qty: 60 0RF ibuprofen 800 mg tablet 800 mg PO Q8H PRN (Reason: pain) Qty: 30 0RF losartan 25 mg tablet 25 mg PO QDAY Qty: 30 0RF losartan 25 mg tablet 25 mg PO QDAY Qty: 30 0RF ciprofloxacin HCl [Cipro] 500 mg tablet 500 mg PO BID Qty: 14 0RF ibuprofen 600 mg tablet 600 mg PO TID PRN (Reason: pain) Qty: 30 0RF Referrals: No Primary/Family,Physician [Primary Care Provider] - In 1 week Problem List Clinical Impression: Fall with no significant injury Patient/Caregiver Discharge Instructions Education Materials: ED Fall with Uncertain Cause Additional Instructions: Please follow-up with your primary care provider in the next 24 to 48 hours Your x-rays did not show any acute fracture or dislocation. Our radiologist recommends that if your hip is continuing to hurt in 2 days you can return for repeat x-ray. For any evidence of worsening signs or symptoms return to the emergency room immediately Print Language: Ghanaian Stand Alone Forms: [place] Award Info., Patient Portal Info Letter PA/CATALYST CONCENTRATION OPERATOR Supervising Physician PA/CATALYST CONCENTRATION OPERATOR Supervising Physician: Dr. Sparrow
== END 2024-12-31 18:44 | disposition home or self-care (01) ==
PROVIDERS: Emergency Provider Emergency Medicine
DX: S70.912A Unspecified superficial injury of left hip, initial encounter (principal); S83.91XA Sprain of unspecified site of right knee, initial encounter; W18.30XA Fall on same level, unspecified, initial encounter
CPT/HCPCS: 73503; 73562; 99283

== ENCOUNTER 2025-03-26 20:34 | Emergency (ER) | payer MEDICAID, SELFPAY ==
--- NOTE | 2025-03-26 20:45 | XR_ITS ---
Examination: CT brain head without contrast. 2-D sagittal coronal reconstructions Date and time of exam:March 26, 2025, 0908 hrs. Indications: Patient fell one hour ago with injury to the head, head pain. CTDI: vol (mGy):45.7 DLP: (mGycm):899 Technique: Multiple CT axial sections of the brain have been obtained, 5 mm slice thickness. Contrast has not been administered. 2-D sagittal, coronal reconstructions have been obtained Low dose protocols were performed. One or more of the following dose reduction techniques were used; automated exposure control, adjustment of the mA and/or KV according to patient size, use of iterative reconstruction technique. Findings: No significant ventricular enlargement. Intra-axial or extra-axial hemorrhage density is not seen. No mass effect or midline shift Basal cisterns are not remarkable. Fourth ventricle is midline. Cranial vault intact. 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
--- NOTE | 2025-03-26 20:45 | XR_ITS ---
Examination: CT maxillofacial, without intravenous contrast. 2-D sagittal reconstructions. 3-D reconstructions. Date and time of exam:March 26, 2025, 2111 hrs. Indications: Ground-level fall one hour ago with injury to the face, facial pain. CTDI: vol (mGy):24.8 DLP: (mGycm):177 Technique: Multiple axial images of maxillofacial region, 3.0 mm slice thickness. 2-D sagittal and coronal reconstructions. 3-D reconstructions. Low dose protocols were performed. One or more of the following dose reduction techniques were used; automated exposure control, adjustment of the mA and/or KV according to patient size, use of iterative reconstruction technique. Findings: Frontal bone frontal sinuses intact No nasal bone fracture. Orbital rims intact Significant right maxillary sinus disease extending into the right nasal airway There is mild depression of the right zygomatic arch which does not appear acute Pterygoid plates maxilla and the mandible intact Impression: No acute facial fracture.
--- NOTE | 2025-03-26 20:46 | XR_ITS ---
Examination: CT cervical spine without contrast 2-D sagittal reconstructions 2-D coronal reconstructions 3-D reconstructions. Exam date and time:March 26, 2025, 2109 hrs. Indications: Ground-level fall one hour ago with injury to the neck, neck pain CTDI:vol (mGy) 12.8 DLP: (mGycm) 304 Technique: Multiple 2 mm axial sections of the cervical spine have been obtained. The coronal and sagittal reconstructions have been obtained. 3-D reconstructions have been obtained. Low dose protocols were performed. One or more of the following dose reduction techniques were used; automated exposure control, adjustment of the mA and/or KV according to patient size, use of iterative reconstruction technique. Findings: Axial sections demonstrate intact base of the skull. C1 exhibit satisfactory relationship to the odontoid. No acute cervical vertebral body fracture seen. Alignment posterior spinous processes satisfactory. Bilateral otitis externa Impression: No acute cervical fracture.
--- NOTE | 2025-03-26 20:51 | EDNOTE_ITS ---
ED Fall Injury RME/HPI General Chief Complaint: Fall Stated Complaint: FALL Time Seen by Provider: 03/26/25 20:38 Arrival date/time: 03/26/25 20:34 RME / HPI RME / HPI Narrative: 59-year-old female patient came in for evaluation regarding ground-level fall. Patient tripped on her sandal, and sustained a ground-level fall face forward sustaining abrasions to the left side of her nose and left eyebrow. Patient also sustained multiple abrasions of the lower extremity. Patient is ambulatory post injury. Denies any neck pain denies any LOC denies any other complaints. No nausea no vomiting. Patient is homeless. Tetanus vaccination is unknown. Related Data Previous Rx's ?Medication ?Instructions ?Recorded Sulfamethoxazole/Trimethoprim DS * 1 tab PO BID #20 ta bs 09/30/16 (BACTRIM DS *) ibuprofen 600 mg tablet 600 mg PO Q6HR PRN PAIN #40 tabs 09/30/16 losartan 25 mg tablet 25 mg PO QDAY #30 tabs 04/11 losartan 25 mg tablet 25 mg PO QDAY #30 tabs 02/06 ibuprofen 800 mg tablet 800 mg PO Q8H PRN pain #30 t abs 10/02/24 losartan 25 mg tablet 25 mg PO BID #60 tabs ciprofloxacin HCl 500 mg tablet 500 mg PO BID #14 tabs 11/18/24 (Cipro) ibuprofen 600 mg tablet 600 mg PO TID PRN pain #30 t abs 11/18/24 losartan 25 mg tablet 25 mg PO QDAY #30 tabs 12/23 cephalexin 500 mg capsule 500 mg PO Q8H 7 days #21 cap s 03/26/25 losartan 50 mg tablet 50 mg PO QDAY #30 tabs 03/26 Allergies Allergy/AdvReac Type Severity Reaction Status Date / Time NKA* Allergy Uncoded 11/18/24 14:19 Review of Systems Review of Systems Narrative Review of Systems: Review of system reviewed and within normal limits except mentioned in HPI ED Exam Narrative Physical exam: VITAL SIGNS: Reviewed. GENERAL APPEARANCE: Alert and interactive, follows commands, no acute distress, HEAD AND FACE: Abrasion noted on left eyebrow nose, left eyebrow, full range of motion of the extraocular muscle. ENT: PERRL, pink conjunctivitis, eyelid no trauma, Mucous membrane moist. NECK: Supple, nontender, no nuchal rigidity. CHEST: No tenderness, no crepitus, no paradoxical movement, no retractions. LUNGS: Clear, well ventilated, symmetric, no rales, no wheezing, no ronchi, no stridor, good breath sounds bilaterally. HEART: Regular rate, regular rhythm, no murmur, no gallops. ABDOMEN: Soft, positive bowel sounds, nondistended, no guarding, nontender, no rebound, no masses, RECTAL: Deferred. GENITAL: Deferred. NEUROLOGICAL: Gross motor function intact sensory function intact, Appropriate for age. MUSCULOSKELETAL: low back nontender, full range of motion. EXTREMITIES: Abrasion noted to the bilateral anterior knee, nontender, full range of motion. SKIN: Color pink, dry, no rash, no lacerations, no abrasions, no contusions. LYMPHATICS: Deferred. Course Quality Measures none Orders Category Date Time Status EKG (ED ONLY) *Do not use* NOW Care 03/26/25 21:[address] cervical spine wo con Stat Exams 03/26/25 20:[address] facial bones wo con Stat Exams 03/26/25 20:[address] head/brain wo con Stat Exams 03/26/25 20:45 Completed EKG (ED Only) Stat Exams 03/26/25 21:28 Draft CBC [CBC] Stat Lab 03/26/25 21:35 Completed CMP [Comprehensive Metabolic Panel] Stat Lab 03/26/25 21:35 Completed UA, C/S IF [Urinalysis, C/S if Indicated] Stat Lab 03/26/25 21:22 Completed Urine Culture Stat Lab 03/26/25 21:22 Received Acetaminophen Tab [Tylenol ES Tab] Med 03/26/25 20:45 Discontinued 1,000 mg PO X1 ONE Losartan [Cozaar] Med 03/26/25 22:48 Discontinued 25 mg PO X1 ONE TET,DIP/PERT AC (Adult)-Tdap [Boostrix Adult (Tdap) Med 03/26/25 20:45 Discontinued Vacc] 0.5 ml IMI .ONCE ONE cephALEXin [Keflex] Med 03/26/25 22:11 Discontinued 500 mg PO X1 ONE hydrALAZINE INJ [Apresoline Inj] Med 03/26/25 21:32 Discontinued 20 mg IVP X1 ONE Vital Signs Vital signs: Vital Signs Temperature 98.8 F 03/26/25 21:03 Respiratory Rate 18 03/26/25 21:03 Pulse Oximetry (%) 97 03/26/25 21:03 Oxygen Delivery Method Room Air 03/26/25 21:03 Fall [facility] Narrative [facility] Narrative:: 59-year-old female patient came in for evaluation regarding ground-level fall. Patient tripped on her sandal, and sustained a ground-level fall face forward sustaining abrasions to the left side of her nose and left eyebrow. Patient also sustained multiple abrasions of the lower extremity. Patient is ambulatory post injury. Denies any neck pain denies any LOC denies any other complaints. No nausea no vomiting. Patient is homeless. Tetanus vaccination is unknown. EKG shows sinus rhythm, ventricular rate of 69 bpm, no ST segment elevation or depression noted. Laboratory workup significant for UTI. Patient blood pressure was noted to be 231/133, initially was given hydralazine 20 mg IV, the rest of the labs unremarkable. Repeat blood pressure was noted to be 191/109. Patient was given a dose of losartan in the emergency room prior to discharge Patient was also given a dose of losartan. CT scan of the head came back unremarkable. CT scan of the face came back unremarkable. CT scan of the cervical spine also came back unremarkable. Patient data External records reviewed:: None Clinical information provided by:: none Social determinants that could affect healthcare access:: none Patient has the following chronic illnesses:: Hypertension not on medications How is presenting disease/condition affected by chronic disease/condition?: exacerbated by Evaluation data The following diagnostics were reviewed and interpreted by me:: lab results, r adiology exam(s) and EKG tracing(s) Lab and/or radiology exams considered but not ordered:: None Interpretation Summary: See results [facility] Medications / Prescriptions Medications or Prescriptions considered but not ordered:: None Medication administrations:: Medication Administration History Discontinued Medications Acetaminophen (Acetaminophen 500 Mg Tablet) 1,000 mg PO X1 ONE Stop: 03/26/25 20:46 Last Admin: 03/26/25 21:37 Dose: 1,000 mg Documented By: DEMETRIO Cephalexin HCl (Cephalexin 250 Mg Capsule) 500 mg PO X1 ONE Stop: 03/26/25 22:12 Last Admin: 03/26/25 22:33 Dose: 500 mg Documented By: DEMETRIO Diphtheria/Tetanus/Acell Pertussis (Diphth,Pertuss(Acell),Tet Vac 0.5 Ml Syr- Adult) 0.5 ml IMi .ONCE ONE Stop: 03/26/25 20:46 Last Admin: 03/26/25 21:37 Dose: 0.5 ml Documented By: DEMETRIO Hydralazine HCl (Hydralazine Inj 20 Mg/Ml Vial) 20 mg IVP X1 ONE Stop: 03/26/25 21:33 Last Admin: 03/26/25 21:47 Dose: 20 mg Documented By: DEMETRIO Losartan Potassium (Losartan Potassium 25 Mg Tablet) 25 mg PO X1 ONE Stop: 03/26/25 22:49 Keflex, Tdap, hydralazine, losartan and Tylenol Consultations Consultation(s) initiated? (list below): No Diagnosis Fall Differential Diagnosis: syncope (Fall, facial abrasion, UTI, hypertension not on medications) and other (Fall,) Most likely diagnosis given after review of the tests above:: Fall, facial abrasions, UTI Admission Indicated Admission indicated?: not indicated Explain why admission is indicated or not indicated:: Stable for charge Admission Request Was there a request for admission?: No Disposition Plan Disposition Plan: Discharge Discharge Attestation Discharge Attestation: The patient was given an opportunity to ask questions and understood the discharge instructions. Discharge instructions specifically effects, indications for sooner follow up or return to the emergency department, and the expected course of current diagnosis. Patient condition: Stable Discharge Plan Plan Patient Disposition: HOME (Self Care) Discharge Disposition comment: Stable Prescriptions/Referrals Prescriptions/Med Rec: New cephalexin 500 mg capsule 500 mg PO Q8H 7 Days Qty: 21 0RF losartan 50 mg tablet 50 mg PO QDAY Qty: 30 0RF No Action ibuprofen 600 MG tablet 600 mg PO Q6HR PRN (Reason: PAIN) Qty: 40 0RF Sulfamethoxazole/Trimethoprim DS * (BACTRIM DS *) 1 TAB tablet 1 tab PO BID Qty: 20 0RF losartan 25 mg tablet 25 mg PO QDAY Qty: 30 0RF losartan 25 mg tablet 25 mg PO BID Qty: 60 0RF ibuprofen 800 mg tablet 800 mg PO Q8H PRN (Reason: pain) Qty: 30 0RF losartan 25 mg tablet 25 mg PO QDAY Qty: 30 0RF losartan 25 mg tablet 25 mg PO QDAY Qty: 30 0RF ciprofloxacin HCl [Cipro] 500 mg tablet 500 mg PO BID Qty: 14 0RF ibuprofen 600 mg tablet 600 mg PO TID PRN (Reason: pain) Qty: 30 0RF Referrals: No Primary/Family,Physician [Primary Care Provider] - In 1 week Problem List Clinical Impression: Fall, Abrasion of face, UTI (urinary tract infection), Hypertension Patient/Caregiver Discharge Instructions Discharge Activity: activity as tolerated Education Materials: Understanding Urinary Tract ... Additional Instructions: Thank you for the opportunity for serving you today. You are stable for discharged . You are advised to: Follow-up with your PCP in 1 to 2 days Return to ED for worsening of symptoms Increase oral fluids Take medication as prescribed Daily dressing with Neosporin as needed Print Language: Citizen Of [place] Stand Alone Forms: [place] Award Info., Patient Portal Info Letter PA/RN [employer] Supervising Physician TAE/KRYSTA Supervising Physician: MD Bhanu
[2025-03-26 20:55] VITALS: BMI 22.8
[2025-03-26 21:03] VITALS: RESP 18; TEMP 37.1; O2SAT 97
[2025-03-26 21:22] VITALS: PULSE 86
--- NOTE | 2025-03-26 21:28 | EKG_ITS ---
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
[2025-03-26 21:30] VITALS: BP 241/135
[2025-03-26] MEDS: ACETAMINOPHEN 500 MG TABLET 1000 MG PO (21:37)
[2025-03-26] MEDS: DIPHTH,PERTUSS(ACELL),TET VAC 0.5 ML SYR- ADULT IMi (21:37)
[2025-03-26 21:43] LABS: Collection Type, Urine Clean Catch
[2025-03-26 21:46] LABS: Basophils # (Auto) 0.0 Thou/mm3 (0.0-0.2); Basophils % (Auto) 1 % (0-2.5); Eosinophils # (Auto) 0.3 Thou/mm3 (0.0-0.5); Eosinophils % (Auto) 4 % (0-10); Hematocrit 38.6 % (36.0-46.0); Hemoglobin 13.0 g/dL (12.0-16.0); Immature Granulocytes Auto 0.02 Thou/mm3 (0.00-0.00); Lymphocytes # (Auto) 1.5 Thou/mm3 (1.0-4.8); Lymphocytes % (Auto) 21 % (10-50); Mean Corpuscular HGB Conc 33.7 g/dl (31.0-37.0); Mean Corpuscular Hemoglobin 30.4 pg (25.0-35.0); Mean Corpuscular Volume 90 fL (80-100); Monocytes # (Auto) 0.7 Thou/mm3 (0.0-0.8); Monocytes % (Auto) 10 % (0-12); Neutrophils # (Auto) 4.4 Thou/mm3 (1.8-7.7); Neutrophils % (Auto) 64 % (37-80); Nucleated Red Blood Cell # 0.00 Thou/mm3 (0.00-0.00); Nucleated Red Blood Cell % 0 /100 WBC (0); Platelet Count 199 Thou/mm3 (140-440); RDW Standard Deviation 47.7 fL (36.4-46.3); Red Blood Count 4.27 Miln/mm3 (4.00-5.20); White Blood Count 6.9 Thou/mm3 (3.6-11.0)
[2025-03-26 21:46] LABS: Bilirubin,Urine Negative (Negative); Blood,Urine Trace (Negative); Clarity,Urine Clear (Clear/Hazy); Color,Urine Lt-Yellow (Lt Yel-Yel); Glucose, Urine Negative (Negative); Ketones,Urine Negative (Negative); Leukocyte Esterase,Urine Positive (Negative); Nitrite,Urine Negative (Negative); PH,Urine 6.0 (5.0-7.0); Protein,Urine Trace (Neg - Trace); RBC,Urine 12 /hpf (0-3); Specific Gravity,Urine 1.020 (1.001-1.035); Squamous Epithelial Cell,Urine 1 /hpf (0-5); Urobilinogen,Urine Negative mg/dL (0.0-1.0); WBC,Urine 90 /hpf (0-5)
[2025-03-26 21:47] VITALS: BP 231/133; PULSE 69
[2025-03-26] MEDS: hydrALAZINE INJ 20 MG/ML VIAL IVP (21:47)
[2025-03-26 21:50] LABS: Culture Indicated,Urine Yes
[2025-03-26 22:05] LABS: Alanine Aminotransferase 14 U/L (10-49); Albumin, Serum 3.9 gm/dL (3.4-4.8); Albumin/Globulin Ratio 1.3 (1.2-2.2); Alkaline Phosphatase 90 U/L (46-116); Anion Gap 8 (7-16); Aspartate Amino Transferase 20 U/L (0-34); BUN/Creatinine Ratio 17 Ratio (12-20); Bilirubin,Total 0.6 mg/dL (0.3-1.2); Blood Urea Nitrogen 26 mg/dL (9-23); Calcium 9.7 mg/dL (8.3-10.6); Calcium (Corrected) 9.8 mg/dL (8.5-10.1); Carbon Dioxide 28.5 mMol/L (20.0-31.0); Chloride 107 mMol/L (98-107); Creatinine (Component) 1.5 mg/dL (0.6-1.3); Estimated Creatinine Clearance 31.5 mL/min (>60); Globulin 3.1 gm/dL (2.3-3.5); Glucose 95 mg/dL (74-106); Osmolality,Calculated 289 (275-295); Potassium 4.0 mMol/L (3.4-5.1); Sodium 143 mMol/L (136-145); Total Protein 7.0 gm/dL (5.7-8.2); eGFR 40 See Note
[2025-03-26 23:18] VITALS: BP 191/109; PULSE 80
[2025-03-26] MEDS: LOSARTAN POTASSIUM 25 MG TABLET PO (23:18)
--- NOTE | 2025-03-26 23:40 | PC.NURSE ---
BP MEDICATION GIVEN LOSARTEN GIVEN. PROVIDER OK WITH DISCHARGING PT BEFORE REASSESSMENT OF BLOOD PRESSURE.
== END 2025-03-26 23:40 | disposition home or self-care (01) ==
PROVIDERS: Nurse Practitioner Family; Emergency Provider Emergency Medicine
DX: S00.31XA Abrasion of nose, initial encounter (principal); S00.212A Abrasion of left eyelid and periocular area, initial encounter; S19.9XXA Unspecified injury of neck, initial encounter; N39.0 Urinary tract infection, site not specified; R94.31 Abnormal electrocardiogram [ECG] [EKG]; I10 Essential (primary) hypertension; W01.0XXA Fall on same level from slipping, tripping and stumbling without subsequent striking against object, initial encounter; Z59.00 Homelessness unspecified; Z23 Encounter for immunization
CPT/HCPCS: 36415; 70450; 70486; 72125; 80053; 81001; 85025; 87086; 90471; 90715; 93005; 96374; 99283; J0360; A9270

== ENCOUNTER 2025-05-12 20:35 | Emergency (ER) | payer MEDICAID, SELFPAY ==
[2025-05-12] VITALS (7 sets, daily range): BP systolic 117–218; BP diastolic 69–123; PULSE 57–79; RESP 18–19; TEMP 37.2; O2SAT 96–100; BMI 23.8
--- NOTE | 2025-05-12 20:39 | PD.EDADULT ---
ED General RME/HPI General Chief complaint: General Adult/Misc Complain Stated complaint: HYPERTENSION Time Seen by Provider: 05/12/25 20:44 Arrival date/time: 05/12/25 20:35 RME / HPI RME / HPI narrative: Dr. Drummond?s Main ED Evaluation: 59yo female with a history of CVA, HTN BIBA from the halfway presents to the ED for a chief complaint of elevated blood pressure. Patient's blood pressure has been high for the last few days despite her recently restarting her Losartan 50mg. With EMS, blood pressure en route was 252/140. Patient reports having blurry vision and tingling to both of her hands and legs. She denies any headache, dizziness, lightheadedness, chest pain, shortness of breath, or any other associated symptoms. Patient is a tobacco smoker. NKA. Related Data Previous Rx's ?Medication ?Instructions ?Recorded Sulfamethoxazole/Trimethoprim DS * 1 tab PO BID #20 tabs 09/30/16 (BACTRIM DS *) ibuprofen 600 mg tablet 600 mg PO Q6HR PRN PAIN #40 tabs 09/30/16 losartan 25 mg tablet 25 mg PO QDAY #30 tabs 04/11/21 losartan 25 mg tablet 25 mg PO QDAY #30 tabs 02/07/24 ibuprofen 800 mg tablet 800 mg PO Q8H PRN pain #30 tabs 10/02/24 losartan 25 mg tablet 25 mg PO BID #60 tabs 10/02/24 ciprofloxacin HCl 500 mg tablet 500 mg PO BID #14 tabs 11/18/24 (Cipro) ibuprofen 600 mg tablet 600 mg PO TID PRN pain #30 tabs 11/18/24 losartan 25 mg tablet 25 mg PO QDAY #30 tabs 12/23/24 losartan 50 mg tablet 50 mg PO QDAY #30 tabs 03/26/25 losartan 100 mg tablet 100 mg PO QDAY #30 tabs 05/12/25 Allergies Allergy/AdvReac Type Severity Reaction Status Date / Time NKA* Allergy Uncoded 11/18/24 14:19 Review of Systems Review of Systems Systems Reviewed: All systems reviewed, normal except as documented ED Exam Narrative Physical exam: Generally patient is alert and in no obvious distress with poor hygiene, head is normocephalic atraumatic, eyes pupils equal round reactive to light without vertical nystagmus, neck shows no nuchal rigidity, heart regular rate and rhythm, lungs clear to auscultation equal bilaterally, abdomen soft bowel sounds present nontender without pulsatile abdominal mass, neurologic exam no dysphasia, no focal motor deficit and obeys commands without difficulty. Stephanie Coma Scale 15. Course Quality Measures none Orders Category Date Time Status EKG (ED ONLY) *Do not use* NOW Care 05/12/25 20:45 Completed Insert IV NOW Care 05/12/25 20:[address] head/brain wo con Stat Exams 05/12/25 20:45 Completed EKG (ED Only) Stat Exams 05/12/25 20:45 Draft XR chest 1V portable Stat Exams 05/12/25 20:45 Completed CBC Stat Lab 05/12/25 20:47 Completed CMP [Comprehensive Metabolic Panel] Stat Lab 05/12/25 20:47 Completed Drug Screen,Urine Stat Lab 05/12/25 21:35 Completed Troponin I Stat Lab 05/12/25 20:47 Completed Labetalol IV [Trandate IV] Med 05/12/25 20:46 Discontinued 20 mg IVP X1 ONE Labetalol IV [Trandate IV] Med 05/12/25 21:29 Discontinued 20 mg IVP X1 ONE hydrALAZINE INJ [Apresoline Inj] Med 05/12/25 21:57 Discontinued 10 mg IVP X1 ONE hydrALAZINE INJ [Apresoline Inj] Med 05/12/25 21:53 Discontinued 20 mg IVP X1 ONE Vital Signs Vital signs: Vital Signs Temperature 98.9 F 05/12/25 20:36 Pulse Rate 68 05/12/25 20:36 Respiratory Rate 19 05/12/25 20:36 Blood Pressure 218/121 H 05/12/25 20:36 Pulse Oximetry (%) 100 05/12/25 20:36 Oxygen Delivery Method Room Air 05/12/25 20:36 Discharge Plan Plan Patient Disposition: HOME (Self Care) Prescriptions/Referrals Prescriptions/Med Rec: New losartan 100 mg tablet 100 mg PO QDAY Qty: 30 0RF No Action ibuprofen 600 MG tablet 600 mg PO Q6HR PRN (Reason: PAIN) Qty: 40 0RF Sulfamethoxazole/Trimethoprim DS * (BACTRIM DS *) 1 TAB tablet 1 tab PO BID Qty: 20 0RF losartan 25 mg tablet 25 mg PO QDAY Qty: 30 0RF losartan 25 mg tablet 25 mg PO BID Qty: 60 0RF ibuprofen 800 mg tablet 800 mg PO Q8H PRN (Reason: pain) Qty: 30 0RF losartan 25 mg tablet 25 mg PO QDAY Qty: 30 0RF losartan 50 mg tablet 50 mg PO QDAY Qty: 30 0RF losartan 25 mg tablet 25 mg PO QDAY Qty: 30 0RF ciprofloxacin HCl [Cipro] 500 mg tablet 500 mg PO BID Qty: 14 0RF ibuprofen 600 mg tablet 600 mg PO TID PRN (Reason: pain) Qty: 30 0RF Referrals: No Primary/Family,Physician [Primary Care Provider] - In 1 week Problem List Clinical Impression: Poorly-controlled hypertension Patient/Caregiver Discharge Instructions Education Materials: ED Hypertension, Established Additional Instructions: Get your new prescription for losartan filled tomorrow and start the dose at 100 mg once a day. Obtain primary care follow-up. Return to ER as needed or if condition worsens. Print Language: Kyrgyz Stand Alone Forms: [place] Award Info., Patient Portal Info Letter MDM Narrative MDM hospital course (for use when minimal MDM required): Scribe Attestation: 05/12/25 - Elsa Sousa am scribing for and in the presence of Dr. Drummond. I interpreted all labs. Troponin is not elevated. Patient has normal renal function. EKG done at 8:52 PM shows normal sinus rhythm at rate of 68 with left ventricular hypertrophy and without ischemic change. For the patient's extreme hypertension here in the emergency room the patient received labetalol 20 mg IV x 2 as well as hydralazine 10 mg IV which helped decrease the blood pressure 161/84. I believe the patient's losartan needs to be increased to 100 mg once a day. Patient is stable for discharge. Head CT was negative. I do not believe this patient to have suffered a stroke. There are no clinical findings. Clinical Information Provided by: patient and EMS Medical Records reviewed [facility] (Per chart review, patient was seen here on 12/23/24 for hypertension.) and EMS Meds/Rx considered, not ordered None Labs/Rad/Tests considered, not ordered None Chronic Illness/Social Conditions Explain: Hx CVA, HTN Labs Labs: interpreted by me Imaging Imaging interpretation: interpreted by me Imaging Interpretation(s): [place] Report Signed Patient: MARIELY BROWN. Record#: [id number] Birthdate: 1965 Age/Sex: 59 / F Location: [facility] Attending Dr: Ordering Physician: Gulshan Drummond DO Date of Service: 05/12/25 Procedure(s): CT head/brain wo con Accession Number(s): [id number] cc: Darryl Salgado MD; Gulshan Drummond DO~ Examination: CT brain head without contrast. 2-D sagittal coronal reconstructions Date and time of exam: May 12, 2025, 2110 hours, comparison March 26, 2025 Onset hypotension with altered mental status today CTDI: vol (mGy): 44.9 DLP: (mGycm): 887 Technique: Multiple CT axial sections of the brain have been obtained, 5 mm slice thickness. Contrast has not been administered. 2-D sagittal, coronal reconstructions have been obtained Low dose protocols were performed. One or more of the following dose reduction techniques were used; automated exposure control, adjustment of the mA and/or KV according to patient size, use of iterative reconstruction technique. Findings: No significant ventricular enlargement. Stable old basal ganglia infarcts compared with March 26, 2025 Intra-axial or extra-axial hemorrhage density is not seen. No mass effect or midline shift Basal cisterns are not remarkable. Fourth ventricle is midline. Cranial vault intact. Impression: No interval acute hemorrhage, mass effect or midline shift Dictated By: Darryl Salgado MD Signed By: <Electronically signed by Darryl Salgado MD in [place]> 05/12/252133 [facility] Report Signed Patient: MARIELY BROWN [employer]. Record#: [id number] Birthdate: 1965 Age/Sex: 59 / F Location: [facility] Attending Dr: Ordering Physician: Gulshan Drummond DO Date of Service: 05/12/25 Procedure(s): XR chest 1V portable Accession Number(s): [id number] cc: Darryl Salgado MD; Gulshan Drummond DO~ EXAMINATION: AP chest single view TECHNIQUE: AP portable upright chest single view And time: May 12, 2025, 2120 hours INDICATIONS: Chest pain shortness of breath today. FINDINGS: Mild enlargement left ventricle Moderate vascular congestion. Suspicious for early septal edema at the lung bases Severe thoracic dextroscoliosis Prominent osteopenia IMPRESSION: Suspicious for early heart failure Dictated By: Darryl Salgado MD Signed By: <Electronically signed by Darryl Salgado MD in [place]> 05/12/252134 Medication Administration(s) Medication Administration History Discontinued Medications Hydralazine HCl (Hydralazine Inj 20 Mg/Ml Vial) 20 mg IVP X1 ONE Stop: 05/12/25 21:54 Last Admin: 05/12/25 22:07 Dose: Not Given Documented By: KAREEM Non-Admin Reason: Discontinued Hydralazine HCl (Hydralazine Inj 20 Mg/Ml Vial) 10 mg IVP X1 ONE Stop: 05/12/25 21:58 Last Admin: 05/12/25 22:06 Dose: 10 mg Documented By: KAREEM Labetalol HCl (Labetalol Inj 5 Mg/Ml Vial 20 Ml) 20 mg IVP X1 ONE Stop: 05/12/25 20:47 Last Admin: 05/12/25 20:56 Dose: 20 mg Documented By: KAREEM Labetalol HCl (Labetalol Inj 5 Mg/Ml Vial 20 Ml) 20 mg IVP X1 ONE Stop: 05/12/25 21:30 Last Admin: 05/12/25 21:38 Dose: 20 mg Documented By: KAREEM see above Diagnosis Differential Diagnosis ED Complaint MDM: See MDM.
--- NOTE | 2025-05-12 20:45 | XR_ITS ---
EXAMINATION: AP chest single view TECHNIQUE: AP portable upright chest single view And time: May 12, 2025, 2120 hours INDICATIONS: Chest pain shortness of breath today. FINDINGS: Mild enlargement left ventricle Moderate vascular congestion. Suspicious for early septal edema at the lung bases Severe thoracic dextroscoliosis Prominent osteopenia IMPRESSION: Suspicious for early heart failure
--- NOTE | 2025-05-12 20:45 | XR_ITS ---
Examination: CT brain head without contrast. 2-D sagittal coronal reconstructions Date and time of exam: May 12, 2025, 2111 hours, comparison March 26, 2025 Onset hypotension with altered mental status today CTDI: vol (mGy): 44.9 DLP: (mGycm): 887 Technique: Multiple CT axial sections of the brain have been obtained, 5 mm slice thickness. Contrast has not been administered. 2-D sagittal, coronal reconstructions have been obtained Low dose protocols were performed. One or more of the following dose reduction techniques were used; automated exposure control, adjustment of the mA and/or KV according to patient size, use of iterative reconstruction technique. Findings: No significant ventricular enlargement. Stable old basal ganglia infarcts compared with March 26, 2025 Intra-axial or extra-axial hemorrhage density is not seen. No mass effect or midline shift Basal cisterns are not remarkable. Fourth ventricle is midline. Cranial vault intact. Impression: No interval acute hemorrhage, mass effect or midline shift
--- NOTE | 2025-05-12 20:45 | EKG_ITS ---
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
[2025-05-12] MEDS: LABETALOL INJ 5 MG/ML VIAL 20 ML 20 MG IVP ×2 (20:56→21:38)
[2025-05-12 21:07] LABS: Basophils # (Auto) 0.1 Thou/mm3 (0.0-0.2); Basophils % (Auto) 1 % (0-2.5); Eosinophils # (Auto) 0.3 Thou/mm3 (0.0-0.5); Eosinophils % (Auto) 4 % (0-10); Hematocrit 38.3 % (36.0-46.0); Hemoglobin 13.0 g/dL (12.0-16.0); Immature Granulocytes Auto 0.03 Thou/mm3 (0.00-0.00); Lymphocytes # (Auto) 2.4 Thou/mm3 (1.0-4.8); Lymphocytes % (Auto) 33 % (10-50); Mean Corpuscular HGB Conc 33.9 g/dl (31.0-37.0); Mean Corpuscular Hemoglobin 30.4 pg (25.0-35.0); Mean Corpuscular Volume 90 fL (80-100); Monocytes # (Auto) 0.8 Thou/mm3 (0.0-0.8); Monocytes % (Auto) 12 % (0-12); Neutrophils # (Auto) 3.7 Thou/mm3 (1.8-7.7); Neutrophils % (Auto) 50 % (37-80); Nucleated Red Blood Cell # 0.00 Thou/mm3 (0.00-0.00); Nucleated Red Blood Cell % 0 /100 WBC (0); Platelet Count 199 Thou/mm3 (140-440); RDW Standard Deviation 44.6 fL (36.4-46.3); Red Blood Count 4.27 Miln/mm3 (4.00-5.20); White Blood Count 7.3 Thou/mm3 (3.6-11.0)
[2025-05-12 21:24] LABS: Alanine Aminotransferase 16 U/L (10-49); Albumin, Serum 4.3 gm/dL (3.4-4.8); Albumin/Globulin Ratio 1.5 (1.2-2.2); Alkaline Phosphatase 93 U/L (46-116); Anion Gap 10 (7-16); Aspartate Amino Transferase < 8 U/L (0-34); BUN/Creatinine Ratio 16 Ratio (12-20); Bilirubin,Total 0.5 mg/dL (0.3-1.2); Blood Urea Nitrogen 19 mg/dL (9-23); Calcium 9.5 mg/dL (8.3-10.6); Calcium (Corrected) 9.5 mg/dL (8.5-10.1); Carbon Dioxide 26.0 mMol/L (20.0-31.0); Chloride 107 mMol/L (98-107); Creatinine (Component) 1.2 mg/dL (0.6-1.3); Estimated Creatinine Clearance 39.4 mL/min (>60); Globulin 2.8 gm/dL (2.3-3.5); Glucose 90 mg/dL (74-106); Osmolality,Calculated 287 (275-295); Potassium 3.8 mMol/L (3.4-5.1); Sodium 143 mMol/L (136-145); Total Protein 7.1 gm/dL (5.7-8.2); Troponin I < 0.020 ng/mL (0.0-0.045); eGFR 52 See Note
[2025-05-12 21:58] LABS: Amphetamine/Methamp Scrn,U Positive (Negative); Barbiturate Screen,Urine Negative (Negative); Benzodiazepines Screen,Urine Negative (Negative); Benzoylecgonine Screen, Ur Negative (Negative); Fentanyl Screen,Urine Negative (Negative); Opiate Screen,Urine Negative (Negative); THC Screen,Urine Negative (Negative)
[2025-05-12] MEDS: hydrALAZINE INJ 20 MG/ML VIAL 10 MG IVP (22:06)
== END 2025-05-12 23:52 | disposition home or self-care (01) ==
PROVIDERS: Emergency Provider Emergency Medicine; PCP Family Medicine
DX: I10 Essential (primary) hypertension (principal); F17.200 Nicotine dependence, unspecified, uncomplicated; Z86.73 Personal history of transient ischemic attack (TIA), and cerebral infarction without residual deficits
CPT/HCPCS: 36415; 70450; 71045; 80053; 80307; 84484; 85025; 93005; 96374; 96375; 96376; 99283; J0360; J3490; J1920